=== PATIENT | male | born 1965 | race Two or more races ===

== ENCOUNTER 2017-11-20 17:04 | Inpatient (IN) | payer MEDICAID, OTHER ==
[~2017-11-20] VITALS: Ht 162.6 cm; Wt 68.5 kg
[2017-11-20 17:59] LABS: ALANINE AMINOTRANSFERASE 55 U/L (12-78); ALBUMIN 4.1 g/dL (3.4-5.0); ANION GAP 11 mmol/L (5-15); CALCIUM 8.8 mg/dL (8.5-10.1); CHLORIDE 98 mmol/L (98-107); CREATININE 0.85 mg/dL (0.7-1.3)
[2017-11-20 18:02] LABS: ALKALINE PHOSPHATASE 76 U/L (45-117); BILIRUBIN,TOTAL 1.2 mg/dL (0.2-1.0); TOTAL PROTEIN 8.7 g/dL (6.4-8.2)
[2017-11-20 18:11] LABS: MEAN CORPUSCULAR HEMOGLOBIN 33.7 pg (27.5-34.5); MEAN CORPUSCULAR HGB CONC 34.4 g/dL (33.2-36.2); MEAN CORPUSCULAR VOLUME 97.9 fL (81-97); MEAN PLATELET VOLUME 8.6 fL (7.4-10.4); PLATELET COUNT 76 x10^3/uL (130-400); RED BLOOD COUNT 4.48 x10^6/uL (4.38-5.82); RED CELL DISTRIBUTION WIDTH 12.9 % (9.4-14.8)
[2017-11-20 18:13] LABS: BASOPHILS # (AUTO) 0.07 x10^3/uL (0-0.1); BASOPHILS % (AUTO) 1 % (0-1); EOSINOPHILS # (AUTO) 0.63 x10^3/uL (0-0.4); EOSINOPHILS % (AUTO) 6 % (1-7); LYMPHOCYTES # (AUTO) 2.12 x10^3/uL (1-3.4); LYMPHOCYTES % (AUTO) 20 % (22-44); MD MORPH REVIEW ONLY; MONOCYTES # (AUTO) 0.67 x10^3/uL (0.2-0.8); MONOCYTES % (AUTO) 6 % (2-9); NEUTROPHILS # (AUTO) 7.33 x10^3/uL (1.8-6.8); NEUTROPHILS % (AUTO) 68 % (42-75)
[2017-11-20 18:18] LABS: <PLATELET ESTIMATE> DECREASED; <PLT MORPHOLOGY> NORMAL PLT MORPH; <RBC MORPHOLOGY> NORMAL
[2017-11-20 18:28] LABS: CULTURE INDICATED? YES; MICROSCOPIC INDICATED
[2017-11-20] MEDS ORDERED: MORPHINE SULFATE 4 MG/ML, 1ML ONE ×3 (18:29→23:21)
[2017-11-20] MEDS ORDERED: FAMOTIDINE 20 MG/2 ML ONE (18:29)
[2017-11-20] MEDS ORDERED: SODIUM CHLORIDE FLUSH 10ML SYR IVF ONE (18:30)
[2017-11-20] MEDS ORDERED: SODIUM CHLORIDE 0.9% 1,000ML IVBOLUS ONE (18:30)
[2017-11-20] MEDS ORDERED: FAMOTIDINE 20 MG/2 ML IVP ONE (18:30)
[2017-11-20] MEDS: MORPHINE SULFATE 4 MG/ML, 1ML IVPush PRN ×2 (18:33→20:00)
[2017-11-20] MEDS ORDERED: CEFTRIAXONE PMX 1GM/50ML 50 ML IV ONE (19:30)
[2017-11-20] MEDS ORDERED: ONDANSETRON 2MG/ML, 2ML IVPush PRN (21:30)
[2017-11-20] MEDS ORDERED: LORazepam 2 MG/ML, 1ML IV PRN ×4 (21:30)
[2017-11-20] MEDS ORDERED: ACETAMINOPHEN 325 MG TABLET PO PRN (21:30)
[2017-11-20 21:52] VITALS: BP 156/94
[2017-11-20] MEDS: POTASSIUM CHLORIDE 20 MEQ, MAGNESIUM SULFATE 2 GM, THIAMINE 100 MG, MVI ADULT 10 ML, FO... IV SCH (22:48)
[2017-11-20] MEDS: ENOXAPARIN 40 MG/0.4 ML SQ SCH (22:48)
[2017-11-20] MEDS: LACTATED RINGERS 1,000 ML IV SCH (22:49)
[2017-11-20] MEDS: morphine SULFATE 10 MG/ML, 1ML IVPush PRN (23:25)
[2017-11-20] MEDS: BISACODYL 10 MG SUPP PR PRN (23:26)
[2017-11-21] VITALS (9 sets, daily range): BP systolic 115–190; BP diastolic 87–117
[2017-11-21 01:59] LABS: MEAN CORPUSCULAR HEMOGLOBIN 33.7 pg (27.5-34.5); MEAN CORPUSCULAR HGB CONC 34.6 g/dL (33.2-36.2); MEAN CORPUSCULAR VOLUME 97.3 fL (81-97); RED BLOOD COUNT 4.28 x10^6/uL (4.38-5.82)
[2017-11-21] MEDS ORDERED: NITROGLYCERIN 0.4 MG BOTTLE (25 TABS) SL PRN (02:00)
[2017-11-21] MEDS ORDERED: NITROGLYCERIN 0.4 MG BOTTLE (25 TABS) SL ONE (02:05)
[2017-11-21 02:10] LABS: ALANINE AMINOTRANSFERASE 45 U/L (12-78); ALBUMIN 3.7 g/dL (3.4-5.0); ANION GAP 9 mmol/L (5-15); CALCIUM 8.4 mg/dL (8.5-10.1); CHLORIDE 105 mmol/L (98-107); CREATININE 0.58 mg/dL (0.7-1.3)
[2017-11-21 02:11] LABS: ALKALINE PHOSPHATASE 65 U/L (45-117); BILIRUBIN,TOTAL 1.2 mg/dL (0.2-1.0)
[2017-11-21 02:12] LABS: TROPONIN I < 0.015 ng/mL (0.000-0.045)
[2017-11-21 02:13] LABS: BASOPHILS # (AUTO) 0.08 x10^3/uL (0-0.1); BASOPHILS % (AUTO) 1 % (0-1); EOSINOPHILS % (AUTO) 6 % (1-7); LYMPHOCYTES # (AUTO) 1.37 x10^3/uL (1-3.4); LYMPHOCYTES % (AUTO) 13 % (22-44); MD SCAN; MEAN PLATELET VOLUME 8.6 fL (7.4-10.4); MONOCYTES # (AUTO) 0.51 x10^3/uL (0.2-0.8); MONOCYTES % (AUTO) 5 % (2-9); NEUTROPHILS # (AUTO) 7.89 x10^3/uL (1.8-6.8); NEUTROPHILS % (AUTO) 76 % (42-75); PLATELET COUNT 65 x10^3/uL (130-400)
[2017-11-21] MEDS ORDERED: MORPHINE SULFATE 4 MG/ML, 1ML ONE (02:36)
[2017-11-21] MEDS: morphine SULFATE 10 MG/ML, 1ML IVPush PRN ×2 (02:42→09:46)
[2017-11-21] MEDS: LACTATED RINGERS 1,000 ML IV SCH ×2 (07:15→11:43)
[2017-11-21 07:45] LABS: TROPONIN I < 0.015 ng/mL (0.000-0.045)
[2017-11-21] MEDS: LORazepam 2 MG/ML, 1ML IV PRN ×2 (09:16→20:38)
[2017-11-21] MEDS: hydrALAzine 20 MG/ML, 1ML IVPush PRN ×2 (09:19→20:29)
[2017-11-21] MEDS ORDERED: NICOTINE 14MG/24 HR PATCH.TD24 ONE (09:38)
[2017-11-21] MEDS: NICOTINE 14MG/24 HR PATCH.TD24 TD SCH (09:45)
[2017-11-21 09:51] LABS: CHOLESTEROL, TOTAL 166 mg/dL (140-239); TRIGLYCERIDES 93 mg/dL (50-200); VLDL CHOLESTEROL 19 mg/dL (0-25)
[2017-11-21 10:17] LABS: HDL CHOL % 33 % (26-37); HDL CHOLESTEROL (DIRECT) 55 mg/dL (40-60); LDL CHOLESTEROL,CALCULATED 92 mg/dL (54-169); LDL/HDL RATIO 1.7 (0.5-3.0)
[2017-11-21 10:29] LABS: FOLATE LEVEL > 20.0 ng/mL (3.1-17.5)
[2017-11-21] MEDS ORDERED: POTASSIUM CHLORIDE 40 MEQ in SODIUM CHLORIDE 0.9% 500 ML IV ONE (12:30)
[2017-11-21] MEDS ORDERED: LABETALOL 5MG/ML, 20ML IVPush PRN (12:30)
[2017-11-21] MEDS: CEFTRIAXONE PMX 1GM/50ML 50 ML IV SCH (20:29)
[2017-11-21] MEDS: BISACODYL 10 MG SUPP PR PRN (20:38)
[2017-11-21] MEDS ORDERED: LACTATED RINGERS 1,000 ML IV SCH (21:30)
[2017-11-21] MEDS: POTASSIUM CHLORIDE 20 MEQ, MAGNESIUM SULFATE 2 GM, THIAMINE 100 MG, MVI ADULT 10 ML, FO... IV SCH (22:47)
[2017-11-21] MEDS: ENOXAPARIN 40 MG/0.4 ML SQ SCH (23:13)
[2017-11-22 03:45] VITALS: BP 153/88
[2017-11-22 05:37] LABS: MEAN CORPUSCULAR HEMOGLOBIN 33.4 pg (27.5-34.5); MEAN CORPUSCULAR HGB CONC 34.3 g/dL (33.2-36.2); MEAN CORPUSCULAR VOLUME 97.3 fL (81-97); PLATELET COUNT 65 x10^3/uL (130-400); RED BLOOD COUNT 4.04 x10^6/uL (4.38-5.82); RED CELL DISTRIBUTION WIDTH 12.9 % (9.4-14.8)
[2017-11-22 05:46] LABS: CHLORIDE 101 mmol/L (98-107)
[2017-11-22 05:58] LABS: ALANINE AMINOTRANSFERASE 33 U/L (12-78); ALBUMIN 3.2 g/dL (3.4-5.0); ALKALINE PHOSPHATASE 65 U/L (45-117); ANION GAP 8 mmol/L (5-15); BILIRUBIN,TOTAL 1.5 mg/dL (0.2-1.0); CALCIUM 8.2 mg/dL (8.5-10.1); CREATININE 0.54 mg/dL (0.7-1.3); TOTAL PROTEIN 7.6 g/dL (6.4-8.2)
[2017-11-22 06:10] LABS: BASOPHILS # (AUTO) 0.01 x10^3/uL (0-0.1); BASOPHILS % (AUTO) 0 % (0-1); EOSINOPHILS # (AUTO) 0.34 x10^3/uL (0-0.4); EOSINOPHILS % (AUTO) 3 % (1-7); LYMPHOCYTES # (AUTO) 1.45 x10^3/uL (1-3.4); LYMPHOCYTES % (AUTO) 14 % (22-44); MD SCAN; MONOCYTES # (AUTO) 0.69 x10^3/uL (0.2-0.8); MONOCYTES % (AUTO) 7 % (2-9); NEUTROPHILS # (AUTO) 7.71 x10^3/uL (1.8-6.8); NEUTROPHILS % (AUTO) 76 % (42-75)
[2017-11-22 06:50] VITALS: BP 132/67
[2017-11-22] MEDS: NICOTINE 14MG/24 HR PATCH.TD24 TD SCH (09:40)
[2017-11-22] MEDS ORDERED: POTASSIUM CHLORIDE 20 MEQ TAB.ER.PRT PO ONE (12:00)
[2017-11-22 13:50] VITALS: BP 168/99
[2017-11-22] MEDS: LACTATED RINGERS 1,000 ML IV SCH (18:06)
[2017-11-22] MEDS: CEFTRIAXONE PMX 1GM/50ML 50 ML IV SCH (18:08)
[2017-11-22 19:50] VITALS: BP 177/101
[2017-11-22] MEDS: hydrALAzine 20 MG/ML, 1ML IVPush PRN (20:12)
[2017-11-22 21:35] VITALS: BP 150/94
[2017-11-23] MEDS: ENOXAPARIN 40 MG/0.4 ML SQ SCH (00:12)
[2017-11-23] MEDS: POTASSIUM CHLORIDE 20 MEQ, MAGNESIUM SULFATE 2 GM, THIAMINE 100 MG, MVI ADULT 10 ML, FO... IV SCH (00:12)
[2017-11-23 02:00] VITALS: BP 167/97
[2017-11-23 06:11] LABS: MEAN CORPUSCULAR HEMOGLOBIN 34.1 pg (27.5-34.5); MEAN CORPUSCULAR HGB CONC 34.3 g/dL (33.2-36.2); MEAN CORPUSCULAR VOLUME 99.4 fL (81-97); RED BLOOD COUNT 4.18 x10^6/uL (4.38-5.82); RED CELL DISTRIBUTION WIDTH 13.1 % (9.4-14.8)
[2017-11-23 06:20] LABS: ALBUMIN 3.5 g/dL (3.4-5.0); ANION GAP 8 mmol/L (5-15); CALCIUM 8.6 mg/dL (8.5-10.1); CHLORIDE 99 mmol/L (98-107)
[2017-11-23 06:24] LABS: ALANINE AMINOTRANSFERASE 35 U/L (12-78); ALKALINE PHOSPHATASE 81 U/L (45-117); BILIRUBIN,TOTAL 1.3 mg/dL (0.2-1.0); CREATININE 0.57 mg/dL (0.7-1.3)
[2017-11-23 06:38] LABS: BASOPHILS # (AUTO) 0.03 x10^3/uL (0-0.1); BASOPHILS % (AUTO) 0 % (0-1); EOSINOPHILS # (AUTO) 0.38 x10^3/uL (0-0.4); EOSINOPHILS % (AUTO) 4 % (1-7); LYMPHOCYTES # (AUTO) 1.78 x10^3/uL (1-3.4); LYMPHOCYTES % (AUTO) 19 % (22-44); MD SCAN; MEAN PLATELET VOLUME 9.1 fL (7.4-10.4); MONOCYTES # (AUTO) 0.75 x10^3/uL (0.2-0.8); MONOCYTES % (AUTO) 8 % (2-9); NEUTROPHILS # (AUTO) 6.51 x10^3/uL (1.8-6.8); NEUTROPHILS % (AUTO) 69 % (42-75); PLATELET COUNT 80 x10^3/uL (130-400)
[2017-11-23 09:20] VITALS: BP 200/113
[2017-11-23] MEDS: hydrALAzine 20 MG/ML, 1ML IVPush PRN (09:34)
[2017-11-23] MEDS: NICOTINE 14MG/24 HR PATCH.TD24 TD SCH (10:00)
[2017-11-23] MEDS: LACTATED RINGERS 1,000 ML IV SCH (10:00)
[2017-11-23 10:18] VITALS: BP 119/114
[2017-11-23 11:37] VITALS: BP 117/113
[2017-11-23 12:30] VITALS: BP 169/105
[2017-11-23] MEDS ORDERED: METOPROLOL TARTRATE 25 MG TABLET PO SCH (12:30)
[2017-11-23] MEDS ORDERED: FOLI-17 PO (12:32)
[2017-11-23] MEDS ORDERED: CEFD300C37 PO (12:32)
[2017-11-23] MEDS ORDERED: METO25TA35 PO (12:32)
[2017-11-23] MEDS ORDERED: THIA100T6 PO (12:32)
[2017-11-23 13:44] VITALS: BP 145/95
== END 2017-11-23 15:00 | disposition home or self-care (01) | DRG 439 ==
LOC: ED 18:31 → EDIP 19:35 → 4EST 21:39 → 4WST 11-21 05:09 → DCLOUNGE 11-23 14:48
PROVIDERS: ADMIT Hospitalist; ATTEND Hospitalist
DX: K85.20 Alcohol induced acute pancreatitis without necrosis or infection (principal); N39.0 Urinary tract infection, site not specified; D69.6 Thrombocytopenia, unspecified; K76.0 Fatty (change of) liver, not elsewhere classified; E87.1 Hypo-osmolality and hyponatremia; F10.239 Alcohol dependence with withdrawal, unspecified; K86.0 Alcohol-induced chronic pancreatitis; K86.89 Other specified diseases of pancreas; B96.20 Unspecified Escherichia coli [E. coli] as the cause of diseases classified elsewhere; D75.89 Other specified diseases of blood and blood-forming organs; E87.6 Hypokalemia; F17.200 Nicotine dependence, unspecified, uncomplicated; I10 Essential (primary) hypertension
CPT/HCPCS: 36415; 74018; 74177; 74181; 80053; 80061; 81001; 82378; 82607; 82746; 82962; 83690; 83735; 84100; 84443; 84484; 85025; 86301; 87077; 87086; 87186; 93005; 96361; 96374; 96375; 96376; J0696; J1650; J3411; J3475; J3480; J7042; J0360; J2060; J2270; J7030; J7040; J7120; S0028

== ENCOUNTER 2017-12-07 23:50 | Emergency (ER) | payer MEDICAID, OTHER ==
[~2017-12-07] VITALS: Ht 162.6 cm; Wt 70.0 kg
[~2017-12-07 23:50] MED LIST: CEFD300C37 PO; FOLI-17 PO; METO25TA35 PO; THIA100T10 PO; THIA100T6 PO
[2017-12-07 23:51] VITALS: BP 110/75
== END 2017-12-08 00:06 | disposition left against medical advice (07) ==
LOC: ED 23:59
DX: Z02.79 Encounter for issue of other medical certificate (principal); Z53.21 Procedure and treatment not carried out due to patient leaving prior to being seen by health care provider

== ENCOUNTER 2019-05-18 20:05 | Inpatient (IN) | payer MEDICAID, OTHER ==
[~2019-05-18] VITALS: Ht 162.6 cm; Wt 67.4 kg
[~2019-05-18 20:05] MED LIST changes: -THIA100T6 PO; +THIA100T67 PO
--- NOTE | 2019-05-18 21:25 | NUR ---
Dr. Lobo to bs.
--- NOTE | 2019-05-18 21:28 | NUR ---
pt [facility] from [facility] x2 days. pt presents grossly intoxicated and drowsy, but able to ambulate with steady gait from lobby to room. pt connected to monitors. vss. no needs expressed. call light within reach. awaiting edmd assessment.
[2019-05-18] MEDS ORDERED: METOCLOPRAMIDE 10MG TABLET ONE (21:42)
[2019-05-18] MEDS ORDERED: DIPHENHYDRAMINE 25 MG CAPSULE ONE (21:42)
--- NOTE | 2019-05-18 21:45 | NUR ---
pt resting in room. vss. lab draw complete. pt medicated per sep. awaiting lab results and ct.
--- NOTE | 2019-05-18 21:50 | NUR ---
pt to ct.
[2019-05-18 22:00] LABS: BASOPHILS # (AUTO) 0.05 x10^3/uL (0-0.1); BASOPHILS % (AUTO) 1 % (0-1); EOSINOPHILS # (AUTO) 0.25 x10^3/uL (0-0.4); EOSINOPHILS % (AUTO) 3 % (1-7); LYMPHOCYTES # (AUTO) 2.14 x10^3/uL (1-3.4); LYMPHOCYTES % (AUTO) 23 % (22-44); MD NO; MEAN CORPUSCULAR HGB CONC 33.5 g/dL (33.2-36.2); MEAN CORPUSCULAR VOLUME 101.5 fL (81-97); MEAN PLATELET VOLUME 7.7 fL (7.4-10.4); MONOCYTES # (AUTO) 0.97 x10^3/uL (0.2-0.8); MONOCYTES % (AUTO) 10 % (2-9); NEUTROPHILS # (AUTO) 5.97 x10^3/uL (1.8-6.8); NEUTROPHILS % (AUTO) 64 % (42-75); PLATELET COUNT 141 x10^3/uL (130-400); RED CELL DISTRIBUTION WIDTH 13.3 % (9.4-14.8)
[2019-05-18] MEDS ORDERED: METOCLOPRAMIDE 10MG TABLET PO ONE (22:00)
[2019-05-18] MEDS ORDERED: DIPHENHYDRAMINE 25 MG CAPSULE PO ONE (22:00)
--- NOTE | 2019-05-18 22:01 | NUR ---
pt resting in room. vss. no needs expressed. call light within reach. ct complete. awaiting ct and lab results. report to MICHAEL Cedeño.
[2019-05-18 22:02] LABS: ALANINE AMINOTRANSFERASE 41 U/L (12-78); ANION GAP 9 mmol/L (5-15); CALCIUM 8.2 mg/dL (8.5-10.1); CHLORIDE 100 mmol/L (98-107); CREATININE 0.61 mg/dL (0.7-1.3)
[2019-05-18 22:05] LABS: ALKALINE PHOSPHATASE 125 U/L (45-117); BILIRUBIN,TOTAL 0.8 mg/dL (0.2-1.0); TOTAL PROTEIN 8.3 g/dL (6.4-8.2)
--- NOTE | 2019-05-18 22:08 | NUR ---
assumed care of pt at this time
[2019-05-18 22:33] LABS: INTERNATIONAL NORMALIZED RATIO 1.08 (0.93-1.1); PROTHROMBIN TIME 11.3 Seconds (9.6-11.5)
--- NOTE | 2019-05-18 22:55 | NUR ---
awaiting admit bed
[2019-05-18] MEDS ORDERED: SODIUM CHLORIDE FLUSH 10ML SYR IVF PRN (23:00)
--- NOTE | 2019-05-18 23:51 | NUR ---
PT DESATING TO 81% ON RA. PT PLACED ON 3L O2 PER N/C. PT CURENTLY SATING 99%
--- NOTE | 2019-05-19 00:46 | NUR ---
BREAK RN: HOSPITALIST IN ROOM WITH PT AT THIS TIME.
[2019-05-19] MEDS ORDERED: PROMETHAZINE 25 MG/ML, 1ML IM PRN (01:00)
[2019-05-19] MEDS ORDERED: GABAPENTIN 300 MG CAPSULE PO PRN (01:00)
--- NOTE | 2019-05-19 01:46 | NUR ---
report to cindy marrero to icu on monitors with this rn
[2019-05-19 02:11] VITALS: BP 148/87
[2019-05-19 03:51] LABS: AMPHETAMINE SCREEN, URINE Negative (Negative); BARBITURATE SCREEN, URINE Negative (Negative); BENZODIAZEPINE SCREEN, URINE Negative (Negative); CANNABINOID SCREEN, URINE Negative (Negative); COCAINE SCREEN, URINE Negative (Negative); METHADONE SCREEN, URINE Negative (Negative); OPIATE SCREEN, URINE Negative (Negative)
[2019-05-19] MEDS: POTASSIUM CHLORIDE 20 MEQ, MAGNESIUM SULFATE 2 GM, THIAMINE 200 MG, MVI ADULT 10 ML, FO... IV SCH (05:44)
[2019-05-19] MEDS: ACETAMINOPHEN 325 MG TABLET PO PRN ×2 (06:47→11:48)
[2019-05-19] MEDS: SENNA/DOCUSATE TABLET PO SCH (08:13)
[2019-05-19] MEDS: morphine SULFATE 10 MG/ML, 1ML IVPush PRN ×3 (08:14→20:16)
[2019-05-19 13:10] VITALS: BP 161/100
[2019-05-19] MEDS: LABETALOL 5 MG/ML SYR. (IV ONLY) IV PRN ×2 (13:20→22:38)
[2019-05-19 14:04] VITALS: BP 147/89
[2019-05-19] MEDS: ONDANSETRON 2MG/ML, 2ML IVPush PRN (20:16)
[2019-05-19 21:25] VITALS: BP 161/97
[2019-05-19 23:08] VITALS: BP 159/85
[2019-05-20] VITALS (14 sets, daily range): BP systolic 143–187; BP diastolic 77–101
[2019-05-20] MEDS: LABETALOL 5 MG/ML SYR. (IV ONLY) IV PRN ×3 (00:12→21:02)
[2019-05-20] MEDS: morphine SULFATE 10 MG/ML, 1ML IVPush PRN ×5 (00:46→18:27)
[2019-05-20] MEDS: POTASSIUM CHLORIDE 20 MEQ, MAGNESIUM SULFATE 2 GM, THIAMINE 200 MG, MVI ADULT 10 ML, FO... IV SCH (04:46)
[2019-05-20 05:52] LABS: BASOPHILS # (AUTO) 0.06 x10^3/uL (0-0.1); BASOPHILS % (AUTO) 1 % (0-1); EOSINOPHILS # (AUTO) 0.34 x10^3/uL (0-0.4); EOSINOPHILS % (AUTO) 3 % (1-7); LYMPHOCYTES # (AUTO) 1.64 x10^3/uL (1-3.4); LYMPHOCYTES % (AUTO) 13 % (22-44); MD NO; MEAN CORPUSCULAR HEMOGLOBIN 33.6 pg (27.5-34.5); MEAN CORPUSCULAR HGB CONC 33.6 g/dL (33.2-36.2); MEAN PLATELET VOLUME 7.5 fL (7.4-10.4); MONOCYTES # (AUTO) 1.02 x10^3/uL (0.2-0.8); MONOCYTES % (AUTO) 8 % (2-9); NEUTROPHILS # (AUTO) 9.43 x10^3/uL (1.8-6.8); NEUTROPHILS % (AUTO) 75 % (42-75); PLATELET COUNT 190 x10^3/uL (130-400); RED BLOOD COUNT 3.99 x10^6/uL (4.38-5.82)
[2019-05-20 05:55] LABS: ALBUMIN 2.9 g/dL (3.4-5.0); ANION GAP 6 mmol/L (5-15); CHLORIDE 98 mmol/L (98-107)
[2019-05-20 05:59] LABS: ALANINE AMINOTRANSFERASE 30 U/L (12-78); ALKALINE PHOSPHATASE 112 U/L (45-117); BILIRUBIN,TOTAL 1.5 mg/dL (0.2-1.0); CREATININE 0.58 mg/dL (0.7-1.3); TOTAL PROTEIN 8.3 g/dL (6.4-8.2)
[2019-05-20] MEDS ORDERED: MAGNESIUM SULFATE PMX 2GM/50ML 50 ML IV ONE (08:30)
[2019-05-20] MEDS: NICOTINE 14MG/24 HR PATCH.TD24 TD SCH (08:30)
[2019-05-20] MEDS ORDERED: LORazepam 1MG TABLET PO PRN ×2 (08:30)
[2019-05-20] MEDS ORDERED: THIAMINE 100 MG/ML, 2ML IM ONE (08:30)
[2019-05-20] MEDS ORDERED: LORazepam 2 MG/ML, 1ML IV PRN ×3 (08:30)
[2019-05-20] MEDS: SODIUM CHLORIDE 0.9% 1,000 ML IV SCH (08:34)
[2019-05-20] MEDS: CARVEDILOL 3.125 MG TABLET PO SCH ×2 (08:42→18:06)
[2019-05-20] MEDS: SENNA/DOCUSATE TABLET PO SCH (08:42)
[2019-05-20] MEDS: MULTIVITAMIN 1 TABLET PO SCH (08:42)
[2019-05-20] MEDS: ONDANSETRON 2MG/ML, 2ML IVPush PRN ×2 (09:09→20:16)
[2019-05-21] VITALS (9 sets, daily range): BP systolic 134–181; BP diastolic 75–100
[2019-05-21] MEDS: morphine SULFATE 10 MG/ML, 1ML IVPush PRN ×2 (00:25→03:41)
[2019-05-21] MEDS: SODIUM CHLORIDE 0.9% 1,000 ML IV SCH ×2 (03:29→20:00)
[2019-05-21] MEDS: LABETALOL 5 MG/ML SYR. (IV ONLY) IV PRN (03:41)
[2019-05-21] MEDS: CARVEDILOL 3.125 MG TABLET PO SCH ×2 (05:38→16:24)
[2019-05-21 06:42] LABS: BASOPHILS # (AUTO) 0.03 x10^3/uL (0-0.1); BASOPHILS % (AUTO) 0 % (0-1); EOSINOPHILS # (AUTO) 0.28 x10^3/uL (0-0.4); EOSINOPHILS % (AUTO) 2 % (1-7); LYMPHOCYTES # (AUTO) 1.47 x10^3/uL (1-3.4); LYMPHOCYTES % (AUTO) 11 % (22-44); MD NO; MEAN CORPUSCULAR HEMOGLOBIN 33.5 pg (27.5-34.5); MEAN CORPUSCULAR HGB CONC 33.5 g/dL (33.2-36.2); MEAN CORPUSCULAR VOLUME 99.8 fL (81-97); MEAN PLATELET VOLUME 7.1 fL (7.4-10.4); MONOCYTES # (AUTO) 0.94 x10^3/uL (0.2-0.8); MONOCYTES % (AUTO) 7 % (2-9); NEUTROPHILS # (AUTO) 10.21 x10^3/uL (1.8-6.8); NEUTROPHILS % (AUTO) 79 % (42-75); PLATELET COUNT 209 x10^3/uL (130-400); RED BLOOD COUNT 3.94 x10^6/uL (4.38-5.82); RED CELL DISTRIBUTION WIDTH 13.3 % (9.4-14.8)
[2019-05-21 06:54] LABS: ANION GAP 6 mmol/L (5-15); CALCIUM 8.8 mg/dL (8.5-10.1); CHLORIDE 98 mmol/L (98-107); CREATININE 0.56 mg/dL (0.7-1.3)
[2019-05-21] MEDS ORDERED: MAGNESIUM SULFATE PMX 4GM/100M 100 ML IV ONE (08:30)
[2019-05-21] MEDS: NICOTINE 14MG/24 HR PATCH.TD24 TD SCH (08:30)
[2019-05-21] MEDS: SENNA/DOCUSATE TABLET PO SCH (08:56)
[2019-05-21] MEDS: ACETAMINOPHEN 325 MG TABLET PO PRN ×2 (08:57→19:59)
[2019-05-21] MEDS: THIAMINE 100MG TABLET PO SCH (08:57)
[2019-05-21] MEDS: MULTIVITAMIN 1 TABLET PO SCH (08:58)
[2019-05-21] MEDS: ONDANSETRON 2MG/ML, 2ML IVPush PRN (09:00)
[2019-05-21] MEDS: LORazepam 0.5MG TABLET PO PRN (11:51)
[2019-05-21] MEDS: hydrALAzine 20 MG/ML, 1ML IV PRN (11:52)
[2019-05-21] MEDS ORDERED: BISACODYL 10 MG SUPP PR ONE (16:30)
[2019-05-21] MEDS ORDERED: MAGNESIUM CITRATE 300ML ORAL SOL PO PRN (17:30)
[2019-05-22] VITALS (7 sets, daily range): BP systolic 126–183; BP diastolic 75–97
[2019-05-22] MEDS: ACETAMINOPHEN 325 MG TABLET PO PRN (04:53)
[2019-05-22] MEDS: CARVEDILOL 3.125 MG TABLET PO SCH ×2 (05:07→18:08)
[2019-05-22] MEDS: ONDANSETRON 2MG/ML, 2ML IVPush PRN (05:07)
[2019-05-22 06:42] LABS: BASOPHILS # (AUTO) 0.03 x10^3/uL (0-0.1); BASOPHILS % (AUTO) 0 % (0-1); EOSINOPHILS # (AUTO) 0.24 x10^3/uL (0-0.4); EOSINOPHILS % (AUTO) 2 % (1-7); LYMPHOCYTES % (AUTO) 10 % (22-44); MD NO; MEAN CORPUSCULAR HEMOGLOBIN 33.9 pg (27.5-34.5); MEAN CORPUSCULAR HGB CONC 33.7 g/dL (33.2-36.2); MEAN CORPUSCULAR VOLUME 100.8 fL (81-97); MEAN PLATELET VOLUME 7.7 fL (7.4-10.4); MONOCYTES # (AUTO) 0.95 x10^3/uL (0.2-0.8); MONOCYTES % (AUTO) 7 % (2-9); NEUTROPHILS # (AUTO) 10.83 x10^3/uL (1.8-6.8); NEUTROPHILS % (AUTO) 81 % (42-75); PLATELET COUNT 216 x10^3/uL (130-400); RED BLOOD COUNT 4.03 x10^6/uL (4.38-5.82); RED CELL DISTRIBUTION WIDTH 13.1 % (9.4-14.8)
[2019-05-22 06:56] LABS: ANION GAP 6 mmol/L (5-15); CALCIUM 8.7 mg/dL (8.5-10.1); CHLORIDE 97 mmol/L (98-107); CREATININE 0.56 mg/dL (0.7-1.3)
[2019-05-22] MEDS ORDERED: MAGNESIUM SULFATE PMX 4GM/100M 100 ML IV ONE (08:30)
[2019-05-22] MEDS ORDERED: POTASSIUM CHLORIDE 20 MEQ TAB.ER.PRT PO ONE (08:30)
[2019-05-22] MEDS: NICOTINE 14MG/24 HR PATCH.TD24 TD SCH (08:30)
[2019-05-22] MEDS: MULTIVITAMIN 1 TABLET PO SCH (08:52)
[2019-05-22] MEDS: SENNA/DOCUSATE TABLET PO SCH (08:52)
[2019-05-22] MEDS: THIAMINE 100MG TABLET PO SCH (08:53)
[2019-05-22] MEDS: LORazepam 0.5MG TABLET PO PRN ×4 (09:02→20:43)
[2019-05-22 17:45] LABS: MICROSCOPIC INDICATED
[2019-05-22] MEDS: SODIUM CHLORIDE 0.9% 1,000 ML IV SCH (18:11)
[2019-05-22] MEDS: hydrALAzine 20 MG/ML, 1ML IV PRN (21:52)
[2019-05-23 01:19] VITALS: BP 151/92
[2019-05-23 05:24] VITALS: BP 154/78
[2019-05-23] MEDS: CARVEDILOL 3.125 MG TABLET PO SCH ×2 (05:27→17:08)
[2019-05-23 06:39] LABS: ANION GAP 8 mmol/L (5-15); CALCIUM 8.7 mg/dL (8.5-10.1); CHLORIDE 92 mmol/L (98-107)
[2019-05-23 06:41] LABS: BASOPHILS # (AUTO) 0.03 x10^3/uL (0-0.1); BASOPHILS % (AUTO) 0 % (0-1); CREATININE 0.51 mg/dL (0.7-1.3); EOSINOPHILS # (AUTO) 0.16 x10^3/uL (0-0.4); EOSINOPHILS % (AUTO) 1 % (1-7); LYMPHOCYTES # (AUTO) 1.69 x10^3/uL (1-3.4); LYMPHOCYTES % (AUTO) 10 % (22-44); MD NO; MEAN CORPUSCULAR HEMOGLOBIN 33.9 pg (27.5-34.5); MEAN CORPUSCULAR HGB CONC 33.7 g/dL (33.2-36.2); MEAN CORPUSCULAR VOLUME 100.4 fL (81-97); MEAN PLATELET VOLUME 7.8 fL (7.4-10.4); MONOCYTES # (AUTO) 1.09 x10^3/uL (0.2-0.8); MONOCYTES % (AUTO) 7 % (2-9); NEUTROPHILS # (AUTO) 13.67 x10^3/uL (1.8-6.8); NEUTROPHILS % (AUTO) 82 % (42-75); PLATELET COUNT 186 x10^3/uL (130-400); RED BLOOD COUNT 3.99 x10^6/uL (4.38-5.82); RED CELL DISTRIBUTION WIDTH 12.9 % (9.4-14.8)
[2019-05-23 07:35] VITALS: BP 158/78
[2019-05-23] MEDS ORDERED: MAGNESIUM SULFATE PMX 4GM/100M 100 ML IV ONE ×2 (08:00→18:00)
[2019-05-23] MEDS: ACETAMINOPHEN 325 MG TABLET PO PRN ×2 (08:02→22:24)
[2019-05-23] MEDS: POTASSIUM CHLORIDE 20 MEQ TAB.ER.PRT PO SCH ×2 (09:29→21:20)
[2019-05-23] MEDS: SENNA/DOCUSATE TABLET PO SCH (09:30)
[2019-05-23] MEDS: MULTIVITAMIN 1 TABLET PO SCH (09:30)
[2019-05-23] MEDS: NICOTINE 14MG/24 HR PATCH.TD24 TD SCH (09:30)
[2019-05-23] MEDS: THIAMINE 100MG TABLET PO SCH (09:30)
[2019-05-23] MEDS ORDERED: OMNIPAQUE 350 MG/ML, 100ML BOTTLE ONE (10:12)
[2019-05-23 14:01] VITALS: BP 155/87
[2019-05-23] MEDS: SODIUM CHLORIDE 0.9% 1,000 ML IV SCH (14:10)
[2019-05-23 18:58] VITALS: BP 156/87
[2019-05-23 21:22] VITALS: BP 147/84
[2019-05-24 00:51] VITALS: BP 157/89
[2019-05-24 05:15] LABS: ANION GAP 8 mmol/L (5-15); CALCIUM 8.3 mg/dL (8.5-10.1); CHLORIDE 90 mmol/L (98-107)
[2019-05-24 05:17] LABS: BASOPHILS # (AUTO) 0.04 x10^3/uL (0-0.1); BASOPHILS % (AUTO) 0 % (0-1); EOSINOPHILS # (AUTO) 0.23 x10^3/uL (0-0.4); EOSINOPHILS % (AUTO) 2 % (1-7); LYMPHOCYTES # (AUTO) 1.28 x10^3/uL (1-3.4); LYMPHOCYTES % (AUTO) 10 % (22-44); MD NO; MEAN CORPUSCULAR HEMOGLOBIN 33.7 pg (27.5-34.5); MEAN CORPUSCULAR HGB CONC 33.1 g/dL (33.2-36.2); MEAN PLATELET VOLUME 7.1 fL (7.4-10.4); MONOCYTES # (AUTO) 0.89 x10^3/uL (0.2-0.8); MONOCYTES % (AUTO) 7 % (2-9); NEUTROPHILS # (AUTO) 10.66 x10^3/uL (1.8-6.8); NEUTROPHILS % (AUTO) 81 % (42-75); PLATELET COUNT 213 x10^3/uL (130-400); RED BLOOD COUNT 4.15 x10^6/uL (4.38-5.82)
[2019-05-24 05:49] VITALS: BP 150/88
[2019-05-24] MEDS: CARVEDILOL 3.125 MG TABLET PO SCH ×2 (05:52→17:11)
[2019-05-24] MEDS: ACETAMINOPHEN 325 MG TABLET PO PRN ×3 (05:53→20:20)
[2019-05-24 07:10] VITALS: BP 136/86
[2019-05-24] MEDS: NICOTINE 14MG/24 HR PATCH.TD24 TD SCH (10:01)
[2019-05-24] MEDS: THIAMINE 100MG TABLET PO SCH (10:01)
[2019-05-24] MEDS: MULTIVITAMIN 1 TABLET PO SCH (10:01)
[2019-05-24] MEDS: POTASSIUM CHLORIDE 20 MEQ TAB.ER.PRT PO SCH ×2 (10:01→20:20)
[2019-05-24] MEDS: SENNA/DOCUSATE TABLET PO SCH (10:01)
[2019-05-24] MEDS: SODIUM CHLORIDE 0.9% 1,000 ML IV SCH (10:05)
[2019-05-24] MEDS: ISOSORBIDE DINITRATE 10 MG TABLET PO SCH ×3 (12:36→20:21)
[2019-05-24 15:09] VITALS: BP 145/80
[2019-05-24 19:02] VITALS: BP 141/80
[2019-05-24 20:19] VITALS: BP 129/71
[2019-05-25 01:37] VITALS: BP 131/70
[2019-05-25] MEDS: SODIUM CHLORIDE 0.9% 1,000 ML IV SCH (02:34)
[2019-05-25] MEDS: ONDANSETRON 2MG/ML, 2ML IVPush PRN ×2 (02:34→09:34)
[2019-05-25 05:31] LABS: BASOPHILS # (AUTO) 0.02 x10^3/uL (0-0.1); BASOPHILS % (AUTO) 0 % (0-1); EOSINOPHILS % (AUTO) 3 % (1-7); LYMPHOCYTES # (AUTO) 1.25 x10^3/uL (1-3.4); LYMPHOCYTES % (AUTO) 11 % (22-44); MD NO; MEAN CORPUSCULAR HEMOGLOBIN 33.8 pg (27.5-34.5); MEAN CORPUSCULAR HGB CONC 33.6 g/dL (33.2-36.2); MEAN CORPUSCULAR VOLUME 100.6 fL (81-97); MEAN PLATELET VOLUME 7.4 fL (7.4-10.4); MONOCYTES # (AUTO) 0.87 x10^3/uL (0.2-0.8); MONOCYTES % (AUTO) 8 % (2-9); NEUTROPHILS # (AUTO) 8.96 x10^3/uL (1.8-6.8); NEUTROPHILS % (AUTO) 79 % (42-75); PLATELET COUNT 212 x10^3/uL (130-400); RED BLOOD COUNT 3.93 x10^6/uL (4.38-5.82)
[2019-05-25 05:41] LABS: ANION GAP 8 mmol/L (5-15); CALCIUM 8.4 mg/dL (8.5-10.1); CHLORIDE 92 mmol/L (98-107); CREATININE 0.44 mg/dL (0.7-1.3)
[2019-05-25] MEDS: ACETAMINOPHEN 325 MG TABLET PO PRN ×2 (05:57→21:46)
[2019-05-25] MEDS: CARVEDILOL 3.125 MG TABLET PO SCH ×2 (05:58→17:12)
[2019-05-25 07:34] VITALS: BP 171/88
[2019-05-25] MEDS: NICOTINE 14MG/24 HR PATCH.TD24 TD SCH (08:30)
[2019-05-25] MEDS: SENNA/DOCUSATE TABLET PO SCH (09:00)
[2019-05-25] MEDS ORDERED: MAGNESIUM SULFATE PMX 4GM/100M 100 ML IV ONE ×2 (09:00→20:30)
[2019-05-25] MEDS: MULTIVITAMIN 1 TABLET PO SCH (09:00)
[2019-05-25] MEDS: THIAMINE 100MG TABLET PO SCH (09:00)
[2019-05-25] MEDS: POTASSIUM CHLORIDE 20 MEQ TAB.ER.PRT PO SCH ×2 (09:00→21:18)
[2019-05-25 12:09] LABS: CREATININE,URINE RANDOM 30.9 mg/dL
[2019-05-25] MEDS: ISOSORBIDE DINITRATE 10 MG TABLET PO SCH ×3 (12:23→21:18)
[2019-05-25 14:40] VITALS: BP 179/89
[2019-05-25 15:34] LABS: ANION GAP 9 mmol/L (5-15); CALCIUM 8.6 mg/dL (8.5-10.1); CHLORIDE 87 mmol/L (98-107); CREATININE 0.56 mg/dL (0.7-1.3)
[2019-05-25] MEDS ORDERED: FUROSEMIDE 20 MG/2 ML IV ONE (16:30)
[2019-05-25] MEDS: BUTALB/APAP/CAFFEINE 50MG/325MG/40MG PO PRN (17:41)
[2019-05-25 20:09] VITALS: BP 97/65
[2019-05-25 21:16] VITALS: BP 151/84
[2019-05-25 21:53] LABS: ANION GAP 6 mmol/L (5-15); CALCIUM 8.4 mg/dL (8.5-10.1); CHLORIDE 84 mmol/L (98-107); CREATININE 0.69 mg/dL (0.7-1.3)
[2019-05-25] MEDS ORDERED: SODIUM CHLORIDE 3% 500 ML IV SCH (23:00)
[2019-05-26 04:57] LABS: ANION GAP 6 mmol/L (5-15); CALCIUM 8.6 mg/dL (8.5-10.1); CHLORIDE 90 mmol/L (98-107); CREATININE 0.61 mg/dL (0.7-1.3)
[2019-05-26] MEDS: CARVEDILOL 3.125 MG TABLET PO SCH ×2 (05:21→16:59)
[2019-05-26] MEDS: NICOTINE 14MG/24 HR PATCH.TD24 TD SCH (08:30)
[2019-05-26 09:00] VITALS: BP 125/88
[2019-05-26] MEDS: SENNA/DOCUSATE TABLET PO SCH (09:07)
[2019-05-26] MEDS: MULTIVITAMIN 1 TABLET PO SCH (09:08)
[2019-05-26] MEDS: ISOSORBIDE DINITRATE 10 MG TABLET PO SCH ×3 (09:09→20:45)
[2019-05-26] MEDS: THIAMINE 100MG TABLET PO SCH (09:09)
[2019-05-26] MEDS: ACETAMINOPHEN 325 MG TABLET PO PRN ×3 (09:09→22:28)
[2019-05-26] MEDS ORDERED: SODIUM CHLORIDE 3% 500 ML IV SCH (15:39)
[2019-05-27 02:22] LABS: BASOPHILS # (AUTO) 0.01 x10^3/uL (0-0.1); BASOPHILS % (AUTO) 0 % (0-1); EOSINOPHILS # (AUTO) 0.39 x10^3/uL (0-0.4); EOSINOPHILS % (AUTO) 5 % (1-7); LYMPHOCYTES % (AUTO) 15 % (22-44); MD NO; MEAN CORPUSCULAR HEMOGLOBIN 33.3 pg (27.5-34.5); MEAN CORPUSCULAR VOLUME 100.9 fL (81-97); MEAN PLATELET VOLUME 6.9 fL (7.4-10.4); MONOCYTES # (AUTO) 0.98 x10^3/uL (0.2-0.8); MONOCYTES % (AUTO) 12 % (2-9); NEUTROPHILS # (AUTO) 5.86 x10^3/uL (1.8-6.8); NEUTROPHILS % (AUTO) 69 % (42-75); PLATELET COUNT 190 x10^3/uL (130-400); RED BLOOD COUNT 3.77 x10^6/uL (4.38-5.82); RED CELL DISTRIBUTION WIDTH 13.1 % (9.4-14.8)
[2019-05-27 05:08] VITALS: BP 138/92
[2019-05-27] MEDS: ACETAMINOPHEN 325 MG TABLET PO PRN ×2 (05:19→15:51)
[2019-05-27] MEDS: CARVEDILOL 3.125 MG TABLET PO SCH ×2 (05:20→17:28)
[2019-05-27] MEDS: MULTIVITAMIN 1 TABLET PO SCH (08:28)
[2019-05-27] MEDS: NICOTINE 14MG/24 HR PATCH.TD24 TD SCH (08:28)
[2019-05-27] MEDS: THIAMINE 100MG TABLET PO SCH (08:28)
[2019-05-27] MEDS: ISOSORBIDE DINITRATE 10 MG TABLET PO SCH ×3 (08:29→20:48)
[2019-05-27] MEDS: SENNA/DOCUSATE TABLET PO SCH (08:29)
[2019-05-27 08:30] VITALS: BP 124/77
[2019-05-27 18:36] VITALS: BP 115/69
[2019-05-28 01:20] VITALS: BP 156/85
[2019-05-28] MEDS: CARVEDILOL 3.125 MG TABLET PO SCH ×2 (05:47→17:08)
[2019-05-28] MEDS: NICOTINE 14MG/24 HR PATCH.TD24 TD SCH (08:30)
[2019-05-28 09:31] LABS: ALBUMIN 3.2 g/dL (3.4-5.0); ANION GAP 7 mmol/L (5-15); CALCIUM 9.2 mg/dL (8.5-10.1); CHLORIDE 93 mmol/L (98-107)
[2019-05-28] MEDS: BUTALB/APAP/CAFFEINE 50MG/325MG/40MG PO PRN ×2 (09:34→20:51)
[2019-05-28 09:35] LABS: ALANINE AMINOTRANSFERASE 36 U/L (12-78); ALKALINE PHOSPHATASE 139 U/L (45-117); BILIRUBIN,TOTAL 0.6 mg/dL (0.2-1.0); CREATININE 0.69 mg/dL (0.7-1.3); TOTAL PROTEIN 8.5 g/dL (6.4-8.2)
[2019-05-28] MEDS: SENNA/DOCUSATE TABLET PO SCH (09:35)
[2019-05-28] MEDS: THIAMINE 100MG TABLET PO SCH (09:35)
[2019-05-28] MEDS: MULTIVITAMIN 1 TABLET PO SCH (09:35)
[2019-05-28] MEDS: ISOSORBIDE DINITRATE 10 MG TABLET PO SCH ×3 (09:36→20:48)
[2019-05-28 10:44] VITALS: BP 126/82
[2019-05-28 12:34] VITALS: BP 133/80
[2019-05-28 20:04] VITALS: BP 130/80
[2019-05-29 00:40] VITALS: BP 115/76
[2019-05-29] MEDS: CARVEDILOL 3.125 MG TABLET PO SCH (05:48)
[2019-05-29 06:39] LABS: ALBUMIN 3.3 g/dL (3.4-5.0); ANION GAP 8 mmol/L (5-15); CALCIUM 9.4 mg/dL (8.5-10.1); CHLORIDE 96 mmol/L (98-107)
[2019-05-29 06:44] LABS: ALANINE AMINOTRANSFERASE 41 U/L (12-78); ALKALINE PHOSPHATASE 138 U/L (45-117); BILIRUBIN,TOTAL 0.7 mg/dL (0.2-1.0); CREATININE 0.64 mg/dL (0.7-1.3); TOTAL PROTEIN 8.6 g/dL (6.4-8.2)
[2019-05-29] MEDS: NICOTINE 14MG/24 HR PATCH.TD24 TD SCH (08:30)
[2019-05-29 09:05] VITALS: BP 101/69
[2019-05-29 09:38] VITALS: BP 126/78
[2019-05-29] MEDS: THIAMINE 100MG TABLET PO SCH (09:41)
[2019-05-29] MEDS: MULTIVITAMIN 1 TABLET PO SCH (09:41)
[2019-05-29] MEDS: SENNA/DOCUSATE TABLET PO SCH (09:41)
[2019-05-29] MEDS: ISOSORBIDE DINITRATE 10 MG TABLET PO SCH (09:42)
[2019-05-29] MEDS ORDERED: CARV3.1212 PO (10:46)
[2019-05-29] MEDS ORDERED: HYDR-3342 PO (10:46)
== END 2019-05-29 14:07 | disposition home or self-care (01) | DRG 55 ==
LOC: ED 22:42 → EDIP 22:47 → ED 22:48 → CCU 05-19 01:55 → 4WST 05-19 12:59 → CCU 05-25 23:25 → 4EST 05-27 08:56
PROVIDERS: ADMIT Family Medicine; ATTEND Internal Medicine
DX: S06.5X9A Traumatic subdural hemorrhage with loss of consciousness of unspecified duration, initial encounter (principal); E22.2 Syndrome of inappropriate secretion of antidiuretic hormone; E46 Unspecified protein-calorie malnutrition; K70.10 Alcoholic hepatitis without ascites; E83.42 Hypomagnesemia; K86.1 Other chronic pancreatitis; S02.19XA Other fracture of base of skull, initial encounter for closed fracture; D72.829 Elevated white blood cell count, unspecified; E87.6 Hypokalemia; F10.229 Alcohol dependence with intoxication, unspecified; F17.210 Nicotine dependence, cigarettes, uncomplicated; G47.00 Insomnia, unspecified; I10 Essential (primary) hypertension; W18.39XA Other fall on same level, initial encounter; Y93.89 Activity, other specified; Y92.89 Other specified places as the place of occurrence of the external cause; Z71.6 Tobacco abuse counseling; Y99.8 Other external cause status; Z59.0 Homelessness; Z80.8 Family history of malignant neoplasm of other organs or systems; Z82.5 Family history of asthma and other chronic lower respiratory diseases; Z68.25 Body mass index [BMI] 25.0-25.9, adult
CPT/HCPCS: 36415; 70450; 71260; 74177; 80048; 80053; 80307; 81001; 82570; 82607; 83735; 83935; 84100; 84133; 84295; 84300; 84443; 85025; 85610; 85730; 87040; 87081; G0378; J2405; J3411; J3475; J3480; J7042; Q9967; J0360; J1940; J2060; J2270; J7030; Q0163